=== PATIENT | female | born 1940 | race African-American/Black ===

== ENCOUNTER 2016-07-14 11:33 | Day surgery (SDC) | END 2016-07-14 20:08 | disposition short-term general hospital (02) | DX: I21.4 Non-ST elevation (NSTEMI) myocardial infarction (principal); I25.10 Atherosclerotic heart disease of native coronary artery without angina pectoris; Z95.1 Presence of aortocoronary bypass graft; I12.0 Hypertensive chronic kidney disease with stage 5 chronic kidney disease or end stage renal disease; N18.6 End stage renal disease; Z99.2 Dependence on renal dialysis; I50.32 Chronic diastolic (congestive) heart failure | CPT/HCPCS: 82962; 93459; C1769; C1887; J0360; J1200; J1644; J2250; J2930; J3010; Q9967 ==